=== PATIENT | female | born 1985 | race Caucasian/White ===

== ENCOUNTER 2017-11-25 23:55 | Inpatient (IN) | payer SELFPAY ==
[~2017-11-25] VITALS: Ht 172.7 cm; Wt 63.6 kg
[~2017-11-25 23:55] MED LIST: LYRICA; LYRICA PO; NEURONTIN100 MG PO; VICODIN,LORT1 TABLET PO
[2017-11-26 00:18] LABS: HEMATOCRIT 34.6 % (36.0-46.0); HEMOGLOBIN 11.6 G/DL (11.9-15.5); MCH 25.2 PG (29.0-34.0); MCHC 33.5 G/DL (30.0-36.0); MCV 75.2 FL (83-99); PLATELET COUNT 187 K/uL (156-360); RBC DIS.WIDTH-CV 14.1 % (11.8-14.6)
[2017-11-26 00:31] LABS: CHLORIDE 105 mEq/L (99-109); POTASSIUM 3.2 mEq/L (3.7-5.4); SODIUM 138 mEq/L (136-147)
[2017-11-26 00:33] LABS: GLUCOSE 141 mg/dL (70-99); TOTAL PROTEIN 7.3 g/dL (6.4-8.3)
[2017-11-26 00:35] LABS: TOTAL BILIRUBIN 0.7 mg/dL (0.0-1.0)
[2017-11-26 00:37] LABS: ALKALINE PHOSPHATASE 62 IU/L (3-129); CREATININE 0.8 mg/dL (0.6-1.3); GFR ESTIMATE (CALCULATED) > 59 mL/min/
[2017-11-26 00:38] LABS: UREA NITROGEN (BUN) 17 mg/dL (9-23)
[2017-11-26 00:39] LABS: AST (GOT) 24 IU/L (2-34)
[2017-11-26 00:40] LABS: ALT (GPT) 19 IU/L (3-49)
[2017-11-26 00:48] LABS: QUANTITATIVE HCG < 4.0 MIU/ML
[2017-11-26 02:23] LABS: APPEARANCE CLEAR ((CLEAR)); BILIRUBIN NEGATIVE; BLOOD LARGE; COLOR YELLOW ((YELLOW)); GLUCOSE (STRIP) NEGATIVE; KETONES 5; LEUKOCYTES NEGATIVE; NITRITE NEGATIVE; PROTEIN (STRIP) 100; SPECIFIC GRAVITY 1.015 (1.000-1.030); UROBILINOGEN 0.2 MG/DL (0.2-1.0)
[2017-11-26 02:31] LABS: AMPHETAMINE NEGATIVE (500 ng/mL); BACTERIA NONE SEEN /HPF; BARBITURATES NEGATIVE (200 ng/mL); BENZODIAZEPINES NEGATIVE (150 ng/mL); BUPRENORPHINE NEGATIVE (10 ng/mL); COCAINE NEGATIVE (150 ng/mL); EPITHELIAL CELLS RARE /HPF; METHADONE PRESUMPTIVE POSITIVE (200 ng/mL); METHAMPHETAMINE NEGATIVE (500 ng/mL); MUCUS TRACE /LPF; OPIATES (MORPHINE) PRESUMPTIVE POSITIVE (100 ng/mL); OXYCODONE NEGATIVE (100 ng/mL); PHENCYCLIDINE NEGATIVE (25 ng/mL); PROPOXYPHENE NEGATIVE (300 ng/mL); RED BLOOD CELLS 0-5 /HPF (0-5); THC CANNABINOIDS PRESUMPTIVE POSITIVE (50 ng/mL); TRICYCLIC ANTIDEPRESSANTS PRESUMPTIVE POSITIVE (300 ng/mL); UCUL ADDED? NO; WHITE BLOOD CELLS 0-5 /HPF (0-5)
[2017-11-26 16:58] VITALS: BP 105/63
== END 2017-11-26 16:09 | disposition home or self-care (01) | DRG 87 ==
LOC: EME 23:55 → EDOF 11-26 03:41 → ENRESERV 11-26 03:48 → CANRESERV 11-26 03:48 → EDOF 11-26 16:09
PROVIDERS: Physician Assistant
DX: S06.5X0A Traumatic subdural hemorrhage without loss of consciousness, initial encounter (principal); S02.40DA Maxillary fracture, left side, initial encounter for closed fracture; S02.2XXA Fracture of nasal bones, initial encounter for closed fracture; S01.511A Laceration without foreign body of lip, initial encounter; S01.81XA Laceration without foreign body of other part of head, initial encounter; S92.354A Nondisplaced fracture of fifth metatarsal bone, right foot, initial encounter for closed fracture; X83.8XXA Intentional self-harm by other specified means, initial encounter; W22.09XA Striking against other stationary object, initial encounter; F11.10 Opioid abuse, uncomplicated; M79.7 Fibromyalgia; G25.81 Restless legs syndrome; F12.90 Cannabis use, unspecified, uncomplicated; F32.9 Major depressive disorder, single episode, unspecified; F41.9 Anxiety disorder, unspecified; F17.200 Nicotine dependence, unspecified, uncomplicated
CPT/HCPCS: 70450; 70486; 73610; 73630; 80053; 81003; 84702; 84999; 85027; 99281; 99285; J2060; J7120; S0020

== ENCOUNTER 2018-03-01 23:33 | Emergency (ER) | payer SELFPAY ==
[~2018-03-01] VITALS: Ht 152.4 cm; Wt 62.2 kg
[2018-03-02 02:20] LABS: HEMATOCRIT 38.4 % (36.0-46.0); HEMOGLOBIN 12.5 G/DL (11.9-15.5); MCHC 32.6 G/DL (30.0-36.0); MCV 76.6 FL (83-99); PLATELET COUNT 236 K/uL (156-360); RBC DIS.WIDTH-CV 13.4 % (11.8-14.6); RBC DIS.WIDTH-SD 36.9 % (39-53); RED BLOOD COUNT 5.01 M/uL (3.80-5.20); WHITE BLOOD COUNT 5.2 K/uL (4.1-10.2)
[2018-03-02 02:33] LABS: CHLORIDE 104 mEq/L (99-109); POTASSIUM 4.6 mEq/L (3.7-5.4); SODIUM 139 mEq/L (136-147)
[2018-03-02 02:35] LABS: GLUCOSE 102 mg/dL (70-99)
[2018-03-02 02:39] LABS: CREATININE 0.8 mg/dL (0.6-1.3); GFR ESTIMATE (CALCULATED) > 59 mL/min/; UREA NITROGEN (BUN) 13 mg/dL (9-23)
[2018-03-02 04:52] VITALS: BP 101/64
== END 2018-03-02 04:53 | disposition home or self-care (01) ==
LOC: EME 23:33
PROVIDERS: Emergency Medicine
DX: R51 Headache (principal); Z87.820 Personal history of traumatic brain injury; R11.2 Nausea with vomiting, unspecified; H53.149 Visual discomfort, unspecified; R00.0 Tachycardia, unspecified
CPT/HCPCS: 80048; 85027; 99281; 99285; J0780; J1100; J1200; J1885; J7030